=== PATIENT | male | born 1980 | race Caucasian/White ===

== ENCOUNTER → 2020-08-25 | Day surgery (SDC) | payer OTHER ==
[~2020-08-25] VITALS: Ht 177.8 cm; Wt 109.0 kg
[~2020-08-25] MED LIST: ATOR20TA58 PO; DEXAMETHASONE SOD PHOS 4 MG/ML VIAL ONE; GLYCOPYRROLATE 1 MG/5 ML VIAL. ONE; HYDR-2145 PO; HYDROmorphone 2 MG/ML VIAL IVP PRN; IV RINGERS,LACTATED 1000ML 1,000 ML IV SCH; LEVO25TA4 PO; LIDOCAINE 1% PF 2 ML VIAL. ONE; LIDOCAINE 2% PF 5 ML VIAL. ONE; MIDAZOLAM HCL/PF 2 MG/2 ML VIAL. ONE; MORPHINE SULFATE 2 MG/ML INJ. IVP PRN; NEOSTIGMINE METHYLSULFATE 5 MG/5 ML SYRINGE. ONE; ONDANSETRON PF 4 MG/2 ML VIAL. ONE; PROCHLORPERAZINE 10 MG/2 ML VIAL. IVP PRN; PROPOFOL 10 MG/ML (20ML) VIAL. IV ONE; ROCURONIUM 50 MG/5 ML VIAL. ONE; ROPIVacaine 0.5% PF 20 ML VIAL. ONE; SUCCINYLCHOLINE 200 MG/10 ML VIAL. ONE; diphenhydrAMINE 50 MG/ML VIAL ONE; fentaNYL PF VIAL 100 MCG/2 ML VIAL IVP PRN; fentaNYL PF VIAL 100 MCG/2 ML VIAL ONE
[2020-08-25 07:50] VITALS: BP 146/100
--- NOTE | 2020-08-25 09:54 | DISCH ---
DISCHARGE INSTRUCTIONS Condition on Discharge Condition on Discharge: Stable Activity After Discharge Activity Instructions for Disc: Other, see below (Maintain splint with toes pointed down nonweightbearing with crutches) Weight Bearing Status after Di: Non weight bearing Diet after Discharge Diet after Discharge: Regular Wound Incision Care Wound/Incision Care: Ice to area for comfort, Keep wound elevated, Do not change dressing Contacting the DRWilla after DC Call your doctor for: Concerns you may have Follow-Up Follow up with: Mr. Feng in 2 weeks GUSTAVO SAHA MD Aug 25, 2020 09:54
--- NOTE | 2020-08-25 12:15 | PDOC4 ---
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 This was treated nonoperatively and more recently on 2 separate occasions he has had the sudden onset of another pop and severe pain and weakness that is now persisted. I went over with him the possib ility of infection nonhealing rerupture and the fact that with surgical treatment the rerupture rate is proven to be significantly less than nonoperative treatment. I did cover however that we need to be strict about his indications for protecting the repair initially with toes down for several weeks and then gently stretching as healing allows and he can only start weightbearing after the foot comes easily to 90 degrees without tightness. All his questions were answered and he wishes to proceed with surgical evaluation and treatment Operative text: Patient was identified procedure verified patient placed in the supine position on the operating table and after adequate amounts of general anesthesia were administered he was placed in the prone position with all bony prominences well-padded and a thigh tourniquet placed. The left lower extremity was then prepped and draped in standard sterile fashion and after timeout was performed patient procedure identified and verified the left lower extremity was exsanguinated by Esmarch bandage tourniquet inflated to 300 mmHg and an incision was made medially along the ankle at the course of the Achilles and a full- thickness rupture was confirmed. Tendon ends were debrided to stable healthy tissue and #5 max braid suture was woven and a total of an 8 strand repair altogether was performed. The large suture was buried inside the substance of t he tendon and tendon sheath and periphery were closed with 2-0 Vicryl suture. Excellent apposition was noted and tested with some tension noted to remain intact. Thorough irrigation carried out normal saline solution subcutaneous closure with buried Vicryl suture skin closure with nylon. A well-padded posterior splint was then placed toes were noted be warm pink following deflat ion of the tourniquet patient was returned to recovery room in stable condition having tolerated procedure well. Sergio Marcos customer assistance representative was present for the procedure and assisted in patient positioning prepping draping retraction closure dressings and splint GUSTAVO SAHA MD Aug 25, 2020 12:15
[2020-08-25 12:22] VITALS: BP 140/89
== END | disposition home or self-care (01) ==
LOC: SURG 07:37 → EEVIPCON 09:45
PROVIDERS: ATTEND Orthopaedic Surgery
DX: S86.012A Strain of left Achilles tendon, initial encounter (principal); I10 Essential (primary) hypertension; E78.00 Pure hypercholesterolemia, unspecified; E03.9 Hypothyroidism, unspecified; Z79.899 Other long term (current) drug therapy; Z98.890 Other specified postprocedural states; X58.XXXA Exposure to other specified factors, initial encounter; Y93.89 Activity, other specified; Y92.89 Other specified places as the place of occurrence of the external cause; Y99.8 Other external cause status
CPT/HCPCS: 27650; 97161; A4930; A6253; A6402; A6449; J0330; J0690; J1100; J1200; J2250; J2405; J2704; J2710; J2795; J3010; J3490; A6455